=== PATIENT | female | born 1950 ===

== ENCOUNTER 2017-09-24 00:23 | Inpatient (IN) | payer MEDICARE, MEDICAID ==
[2017-09-24] MEDS ORDERED: Aspirin 325 mg EC Tablets PO STA (00:41)
--- NOTE | 2017-09-24 00:46 | C.PDOC ---
History Of Present Illness 66 year old female with a Hx of diabetes and HTN presents to the ER with a complaint of palpations and feeling SOB intermittently for the past few days that has worsened today. Patient reports feeling lightheaded as if she is going to lose her balance and fall. Patient notes she is a smoker and smokes through 1 pack of cigarettes every 3 days. Denies nausea, vomiting, or other complaints. Chief Complaint (Nursing): Shortness Of Breath History Per: Patient History/Exam Limitations: no limitations Onset/Duration Of Symptoms: Days Current Symptoms Are (Timing): Still Present Current Respiratory Medications: None Associated Symptoms: Heart Racing. denies: Fever, Chills Recent travel outside of the [place]: No Past Medical History Reviewed: Historical Data, Nursing Documentation, Vital Signs Vital Signs: Last Vital Signs Temp 97.5 F L 09/24/17 00:29 Pulse 73 09/24/17 02:15 Resp 20 09/24/17 02:15 BP 101/43 L 09/24/17 02:15 Pulse Ox 98 09/24/17 03:07 - Medical History PMH: Arthritis, Asthma, Diabetes, HTN, Rheumatoid Arthritis - [facility] Procedures COLONOSCOPY (02/28/14) ESOPHAGOGASTRODUODENOSCOPY [EGD] W/CLOSED BIOPSY (01/31/14) Family History: States: Unknown Family Hx - Social History Hx Alcohol Use: Yes Hx Substance Use: No - Immunization History Hx Tetanus Toxoid Vaccination: No Hx Influenza Vaccination: No Hx Pneumococcal Vaccination: No Review Of Systems Constitutional: Negative for: Fever, Chills Eyes: Negative for: Vision Change Cardiovascular: Positive for: Palpitations Respiratory: Positive for: Shortness of Breath Gastrointestinal: Negative for: Nausea, Vomiting Neurological: Negative for: Weakness, Numbness Physical Exam - Physical Exam Appears: Non-toxic, No Acute Distress, Other (Awake, Alert) Skin: Normal Color, Warm, Dry Head: Atraumatic, Normacephalic Eye(s): bilateral: Normal Inspection, EOMI Oral Mucosa: Moist Neck: Normal, Supple Chest: Symmetrical, No Tenderness Cardiovascular: Rhythm Irregular (Slow), No JVD, Other (Slow rhythm on the monitor, BP 108/43) Respiratory: Normal Breath Sounds, No Rales, No Rhonchi, No Wheezing, Other ( Pulse ox 100%) Gastrointestinal/Abdominal: Soft, No Tenderness Neurological/Psych: Oriented x3, Normal Speech, Other (No focal deficits) ED Course And Treatment - Laboratory Results Result Diagrams: 09/24/17 01:04 09/24/17 01:04 ECG Rhythm: Atrial Fibrillation ECG Interpretation: Abnormal Interpretation Of ECG: Slow ventricular response, no discernible P waves, otherwise intervals within normal limits. No acute ST/T wave changes, no ischemia, poor R wave progression in intraseptal leads. Rate From EC O2 Sat by Pulse Oximetry: 98 (Room air) Pulse Ox Interpretation: Normal Interpretation Of Abnormal: repeat ekg after CaCl2,bicarb,insulin and D50 shows NSR at 78BPM.NSSTTW changes - Radiology CXR: Interpreted by Me, Viewed By Me CXR Interpretation: Yes: No Acute Disease, Other (Cardiac silhoutte within normal limits, lung hunt appear normal) - CT Scan/US CTA Other Rad Studies (CT/US): Read By Radiologist, Radiology Report Reviewed CT/US Interpretation: EXAM: CT Angiography Chest With Intravenous Contrast. CLINICAL HISTORY: 66 years old, female; Pain; Chest pain; Additional info: SOB. TECHNIQUE: Axial computed tomographic angiography images of the chest with intravenous contrast using. pulmonary embolism protocol. All CT scans at this facility use one or more dose reduction. techniques, viz.: automated exposure control; ma/kV adjustment per patient size (including targeted. exams where dose is matched to indication; i.e. head); or iterative reconstruction technique. MIP reconstructed images were created and reviewed. Coronal and sagittal reformatted images were created and reviewed. CONTRAST: 100 mL of [id number] administered intravenously. COMPARISON: No relevant prior studies available. FINDINGS: Pulmonary arteries: Unremarkable. No pulmonary embolism. Aorta: No acute findings. No thoracic aortic aneurysm. Lungs: 5 mm nodule in right lung. Series 3 image #48. For low-risk patients, no follow-up is. necessary. For high-risk patients (smoking history or other known risk factors) an optional chest CT. at 12 months could be performed. Dependent atelectasis at lung bases. Pleural space: Unremarkable. No significant effusion. No pneumothorax. Heart: Unremarkable. No cardiomegaly. No significant pericardial effusion. Bones/joints: Diffuse spinal degenerative changes. No acute fracture. No dislocation. Soft tissues: Unremarkable. Lymph nodes: Unremarkable. No enlarged lymph nodes. IMPRESSION: 1. No acute pulmonary embolism. 2. 5 mm nodule right lung. See above. 3. Remainder of findings as above. Progress Note: atrial fib was likely the result of hyperkalemia.After correction of the potassium levels,rhythm reverted to NSR Medical Decision Making Medical Decision Making: Plan: * EKG * Blood work * CXR * Aspirin Patient with heraclio arrhythmia on unknown HTN medication, blood pressure medications may be possible cause of heraclio arrhythmia resulting in generalized weakness and presyncope. Will admits for observation, patient may potentially need pacemaker. Patient had a holter monitor done in 08/10/17 which showed sinus rhythm and sinus tach with a low of 65 bpm to a max of 112 bpm and isolated APCs but nothing remarkable. No a-fib seen at this time. Repeat EKG showed A-fib with slow ventricular response, occasional PACs, no acute ischemic changes. Patient given sodium bicarb, calcium chloride, insulin, and d50 pushed for hyperkalemia; shortly after p waves reappeared on the monitor and patient converted back to NSR. It is likely that the correction of the hyperkalemia resulted in the ablation of the arrhythmia. Disposition - Disposition Referrals: Blu Batista MD [Primary Care Provider] - Disposition: HOSPITALIZED Disposition Time: 02:47 Condition: GUARDED Forms: [employer] (Tunisian) - Clinical Impression Clinical Impression: Atrial fibrillation, Hyperkalemia, Pre-syncope - Scribe Statement The provider has reviewed the documentation as recorded by the Scribe Deven Us All medical record entries made by the Scribe were at my direction and personally dictated by me. I have reviewed the chart and agree that the record accurately reflects my personal performance of the history, physical exam, medical decision making, and the department course for this patient. I have also personally directed, reviewed, and agree with the discharge instructions and disposition. Decision To Admit - Pt Status Changed To: Hospital Disposition Of: Inpatient - Admit Certification Admit to Inpatient:: After my assessment, the patient will require hospitalization for at least two midnights. This is because of the severity of symptoms shown, intensity of services needed, and/or the medical risk in this patient being treated as an outpatient. - InPatient: Physician Admission Certification: I certify that this patient requires 2 or more midnights of care for the following reason:: new onset atrial fib, presyncope,hyperkalemia - . Bed Request Type: Telemetry Admitting Physician: Elías Hart Patient Diagnosis: Atrial fibrillation, Hyperkalemia, Pre-syncope
[2017-09-24] MEDS ORDERED: Aspirin 325 mg EC Tablets PO ONE (00:59)
[2017-09-24 01:08] LABS: CHLORIDE 102 mmol/L (98-107)
[2017-09-24 01:09] LABS: POTASSIUM 5.8 mmol/L (3.6-5.2); SODIUM 133 mmol/L (132-148)
[2017-09-24 01:11] LABS: AST/SGOT 27 U/L (14-36); BILIRUBIN,TOTAL 0.5 mg/dL (0.2-1.3); CARBON DIOXIDE 22 mmol/L (22-30); GFR AFRICAN-AMERICAN > 60; TOTAL PROTEIN 7.6 g/dL (6.3-8.3)
[2017-09-24 01:12] LABS: ALKALINE PHOSPHATASE 64 U/L (38-126); ALT/SGPT 35 U/L (9-52); BLOOD UREA NITROGEN 18 mg/dL (7-17); CALCIUM 10.6 mg/dl (8.6-10.4); GLUCOSE,RANDOM 126 mg/dL (65-105)
[2017-09-24 01:13] LABS: BASO # 0.1 K/uL (0.0-0.2); EOS # 0.3 K/uL (0.0-0.7); EOS % 2.8 % (0.0-4.0); HEMATOCRIT 35.4 % (34.0-47.0); LYMPH # 4.4 K/uL (1.0-4.3); LYMPH % 35.9 % (20.0-40.0); MEAN CORPUSCULAR HEMOGLOBIN 29.8 pg (27.0-31.0); MEAN CORPUSCULAR HGB CONC 32.4 g/dL (33.0-37.0); MEAN PLATELET VOLUME 8.1 fL (7.2-11.7); MONO # 0.7 K/uL (0.0-0.8); MONO % 5.3 % (0.0-10.0); RED CELL DISTRIBUTION WIDTH 15.9 % (11.5-14.5); WHITE BLOOD COUNT 12.3 K/uL (4.8-10.8)
[2017-09-24] MEDS ORDERED: (Novolin R) Insulin Human Regular 100 units/ml vial IV ONE (01:52)
[2017-09-24] MEDS ORDERED: Calcium Chloride 1000 mg/10 ml Syringe IV ONE (01:52)
[2017-09-24] MEDS ORDERED: Dextrose 50% SYRINGE Inj (50 ml) IV STA (01:53)
[2017-09-24] MEDS ORDERED: Sodium Bicarbonate (8.4%) 50 Meq Syringe IVP ONE (01:53)
[2017-09-24] MEDS ORDERED: (Novolin R) Insulin Human Regular 100 units/ml vial ONE (02:02)
[2017-09-24] MEDS ORDERED: Dextrose 50% SYRINGE Inj (50 ml) ONE (02:03)
[2017-09-24] MEDS ORDERED: Sodium Bicarbonate (8.4%) 50 Meq Syringe ONE ×2 (02:03→02:12)
--- NOTE | 2017-09-24 02:04 | CP.PCM.HP ---
<Abundio Ariza Kimberli - Last Filed: 09/24/17 04:04> History of Present Illness - History of Present Illness History of Present Illness: "I was going to faint" This is a 66 year old female with a past medical history of HTN, Diabetes, Rheumatoid arthritis, Osteoporosis, who came to the ER via ambulance because of a 48 hour history of feeling lightheaded, short of breath and as if she was going to pass out. This morning these symptoms became worse. She says she felt as if she would fall if she were to get out of bed. She called her PMD , Dr Batista, who was not working today, thus she called 911. She had similar symptoms 2 weeks ago but of a milder degree. She reports palpitations. She says at baseline she's able to walk 4 blocks, at which point she becomes tired and short of breath. She sleeps with 1 pillow at night. She denies fever, chills, nausea, vomiting, chest pain, abdominal pain, diarrhea, dysuria, or other complaints. Upon chart review, patient had a holter monitor done in which showed sinus rhythm and sinus tach with a low of 65 bpm to a max of 112 bpm and isolated APCs but nothing remarkable. PMD: Dr Blu Batista PMHx: HTN, Diabetes, Rheumatoid arthritis, Osteoporosis PSHx: surgery on feet b/l 2004 (cannot recall specifics), surgery on knees b/l 2004 (cannot recall specifics), "bladder surgery" for urinary incontinence 2004 Allergies: NKA Home medications: Metformin 1000mg PO BID, she takes other medications but does not remember the name (will need to contact PMD to verify) FamHx: Mother from DM2 complications; Father from heart problems SocialHx: smokes 1 pack per week for past 40 years; denies alcohol or illicit drug use; lives alone in home, has a daughter who checks-in on her Present on Admission - Present on Admission Any Indicators Present on Admission: No Review of Systems - Constitutional Constitutional: absent: Chills, Fever, Frequent Falls, Headache, Lethargy, Night Sweats, Weight Loss - EENT Eyes: absent: Change in Vision - Cardiovascular Cardiovascular: Dyspnea, Dyspnea on Exertion, Lightheadedness, Palpitations. absent: Chest Pain, Chest Pain at Rest, Chest Pain with Activity, Diaphoresis, Edema, Leg Edema Additional comments: Presyncope - Respiratory Respiratory: Dyspnea on Exertion. absent: Cough, Wheezing - Gastrointestinal Gastrointestinal: absent: Abdominal Pain, Bloating, Constipation, Diarrhea, Vomiting - Genitourinary Genitourinary: absent: Dysuria - Musculoskeletal Musculoskeletal: Back Pain - Neurological Neurological: Disequilibrium. absent: Focal Weakness Past Patient History - Infectious Disease Hx of Infectious Diseases: None - Past Social History Smoking Status: Current Some Days Smoker - CARDIAC Hx Hypertension: Yes - PULMONARY Hx Asthma: Yes - ENDOCRINE/METABOLIC Hx Diabetes Mellitus Type 2: Yes - MUSCULOSKELETAL/RHEUMATOLOGICAL Hx Arthritis: Yes Hx Rheumatoid Arthritis: Yes - PSYCHIATRIC Hx Substance Use: No - SURGICAL HISTORY Hx Musculoskeletal Surgery: Yes Other/Comment: "L knee and L foot" - ANESTHESIA Hx Anesthesia: Yes Hx Anesthesia Reactions: No Hx Malignant Hyperthermia: No Meds Allergies/Adverse Reactions: Allergies Allergy/AdvReac Type Severity Reaction Status Date / Time No Known Allergies Allergy Unverified 09/24/17 00:29 Physical Exam - Constitutional Appears: Well, No Acute Distress - Head Exam Head Exam: ATRAUMATIC, NORMAL INSPECTION - Eye Exam Eye Exam: EOMI Pupil Exam: PERRL - ENT Exam ENT Exam: Mucous Membranes Moist - Neck Exam Neck exam: Positive for: Normal Inspection. Negative for: Tenderness - Respiratory Exam Respiratory Exam: Clear to Auscultation Bilateral, NORMAL BREATHING PATTERN. absent: Rales, Rhonchi, Wheezes - Cardiovascular Exam Cardiovascular Exam: REGULAR RHYTHM, +S1, +S2. absent: Bradycardia, Tachycardia , JVD, Systolic Murmur - GI/Abdominal Exam GI & Abdominal Exam: Normal Bowel Sounds, Soft. absent: Distended, Guarding, Tenderness - Extremities Exam Extremities exam: Positive for: normal capillary refill, normal inspection, pedal pulses present. Negative for: calf tenderness, pedal edema, tenderness - Back Exam Back exam: CVA tenderness (L), CVA tenderness (R), NORMAL INSPECTION, vertebral tenderness. absent: rash noted - Neurological Exam Neurological exam: Alert, CN II-XII Intact, Oriented x3 - Psychiatric Exam Psychiatric exam: Normal Affect, Normal Mood - Skin Skin Exam: Intact, Normal Color, Warm Results - Vital Signs Recent Vital Signs: Last Vital Signs Temp 97.5 F L 09/24/17 00:29 Pulse 46 L 09/24/17 00:29 Resp 14 09/24/17 00:30 BP 108/43 L 09/24/17 00:29 Pulse Ox 98 09/24/17 01:58 - Labs Result Diagrams: 09/24/17 01:04 09/24/17 01:04 Labs: Laboratory Results - last 24 hr 09/24/17 09/24/17 09/24/17 01:04 01:04 01:04 WBC 12.3 H RBC 3.85 Hgb 11.5 Hct 35.4 MCV 92.0 MCH 29.8 MCHC 32.4 L RDW 15.9 H Plt Count 298 MPV 8.1 Neut % (Auto) 55.0 Lymph % (Auto) 35.9 Bland % (Auto) 5.3 Eos % (Auto) 2.8 Baso % (Auto) 1.0 Neut # 6.8 Lymph # 4.4 H Bland # 0.7 Eos # 0.3 Baso # 0.1 PT 10.7 INR 1.0 APTT 33 D-Dimer, Quantitative 315 H Sodium 133 Potassium 5.8 H Chloride 102 Carbon Dioxide 22 Anion Gap 15 BUN 18 H Creatinine 0.8 Est GFR ( Amer) > 60 Est GFR (Non-Af Amer) > 60 Random Glucose 126 H Calcium 10.6 H Total Bilirubin 0.5 AST 27 ALT 35 Alkaline Phosphatase 64 Troponin I 0.0210 NT-Pro-B Natriuret Pep 1950 H Total Protein 7.6 Albumin 3.8 Globulin 3.8 Albumin/Globulin Ratio 1.0 Assessment & Plan (1) Pre-syncope Assessment and Plan: Likely secondary to hyperkalemia resulting in arrythmia Initial EKG showed A-Fib with slow ventricular response, occasional PACs, no acute ischemic changes. Patient administered meds to correct hyperkalemia (see below); shortly after p waves re-appeared on the monitor and patient converted back to NSR. Potassium on admission: 5.8 In ED: Calcium Chloride 1000mg IV ONCE In ED: Sodium Bicarbonate 50 meq IVP ONCE In ED: Dextrose 50% 50ml IV ONCE In ED: Insulin Regular 10 units IV ONCE F/U FOBT Status: Acute (2) Atrial fibrillation Assessment and Plan: Initial EKG showed A-Fib with slow ventricular response, occasional PACs, no acute ischemic changes. Patient administered meds to correct hyperkalemia; shortly after p waves re-appeared on the monitor and patient converted back to NSR. Cardiology consult, Dr Machado On telemetry Trop x1 (-), F/U Trop x2 ECHO, F/U ECHO 04/2017: LVSF normal. EF 65%. Abnormal relaxation pattern. Mild pulmonary hypertension. Status: Acute (3) Hyperkalemia Assessment and Plan: Potassium on admission: 5.8 In ED: Calcium Chloride 1000mg IV ONCE In ED: Sodium Bicarbonate 50 meq IVP ONCE In ED: Dextrose 50% 50ml IV ONCE In ED: Insulin Regular 10 units IV ONCE F/U AM CMP Status: Acute (4) Elevated d-dimer Assessment and Plan: D-Dimer 315 CT Chest Angio 09/24: No acute pulmonary embolism. 5mm nodule right lung ( should have repeat chest CT in 12 months). Status: Acute (5) Prophylactic measure Assessment and Plan: GI: Protonix 40mg PO QD DVT: SCDs, Heparin 5000u SC Q8H Diet: Heart Healthy - Moderate Carbohydrate Consistency Status: Acute <Elías Hart - Last Filed: 09/24/17 06:34> Results - Vital Signs Recent Vital Signs: Last Vital Signs Temp 97.8 F 09/24/17 04:20 Pulse 70 09/24/17 04:54 Resp 20 09/24/17 04:20 BP 153/81 H 09/24/17 04:20 Pulse Ox 98 09/24/17 06:18 - Labs Result Diagrams: 09/24/17 01:04 09/24/17 01:04 Labs: Laboratory Results - last 24 hr 09/24/17 09/24/17 09/24/17 01:04 01:04 01:04 WBC 12.3 H RBC 3.85 Hgb 11.5 Hct 35.4 MCV 92.0 MCH 29.8 MCHC 32.4 L RDW 15.9 H Plt Count 298 MPV 8.1 Neut % (Auto) 55.0 Lymph % (Auto) 35.9 Bland % (Auto) 5.3 Eos % (Auto) 2.8 Baso % (Auto) 1.0 Neut # 6.8 Lymph # 4.4 H Bland # 0.7 Eos # 0.3 Baso # 0.1 PT 10.7 INR 1.0 APTT 33 D-Dimer, Quantitative 315 H Sodium 133 Potassium 5.8 H Chloride 102 Carbon Dioxide 22 Anion Gap 15 BUN 18 H Creatinine 0.8 Est GFR ( Amer) > 60 Est GFR (Non-Af Amer) > 60 Random Glucose 126 H Calcium 10.6 H Total Bilirubin 0.5 AST 27 ALT 35 Alkaline Phosphatase 64 Troponin I 0.0210 NT-Pro-B Natriuret Pep 1950 H Total Protein 7.6 Albumin 3.8 Globulin 3.8 Albumin/Globulin Ratio 1.0 Assessment & Plan - Date & Time Date: 09/24/17 (I have seen and examined the patient. I agree with the findings and plan of care as documented by Dr. Ariza. Patient with new onset atrial fibrillation seen in ED. Now in NSR. Check 2D echo and ROMIx3 with EKG. Consult to Cardio. Presyncope may be related to paroxysmal atrial fib. Check CT head. Hyperkalemia treated in ED. Will monitor and treat accordingly. CT angio negative for pulm embolism. Monitor for acute changes.) Time: 06:31 Attending/Attestation - Attestation I have personally seen and examined this patient.: Yes I have fully participated in the care of the patient.: Yes I have reviewed all pertinent clinical information: Yes
[2017-09-24] MEDS ORDERED: Iodixanol 320 mg/ml 150 ml Bottle IV ONE (02:06)
--- NOTE | 2017-09-24 03:38 | CT ---
EXAM: CT Angiography Chest With Intravenous Contrast CLINICAL HISTORY: 66 years old, female; Pain; Chest pain; Additional info: SOB TECHNIQUE: Axial computed tomographic angiography images of the chest with intravenous contrast using pulmonary embolism protocol. All CT scans at this facility use one or more dose reduction techniques, viz.: automated exposure control; ma/kV adjustment per patient size (including targeted exams where dose is matched to indication; i.e. head); or iterative reconstruction technique. MIP reconstructed images were created and reviewed. Coronal and sagittal reformatted images were created and reviewed. CONTRAST: 100 mL of [id number] administered intravenously. COMPARISON: No relevant prior studies available. FINDINGS: Pulmonary arteries: Unremarkable. No pulmonary embolism. Aorta: No acute findings. No thoracic aortic aneurysm. Lungs: 5 mm nodule in right lung. Series 3 image #48. For low-risk patients, no follow-up is necessary. For high-risk patients (smoking history or other known risk factors) an optional chest CT at 12 months could be performed. Dependent atelectasis at lung bases. Pleural space: Unremarkable. No significant effusion. No pneumothorax. Heart: Unremarkable. No cardiomegaly. No significant pericardial effusion. Bones/joints: Diffuse spinal degenerative changes. No acute fracture. No dislocation. Soft tissues: Unremarkable. Lymph nodes: Unremarkable. No enlarged lymph nodes. IMPRESSION: 1. No acute pulmonary embolism. 2. 5 mm nodule right lung. See above. 3. Remainder of findings as above.
[2017-09-24 04:21] VITALS: RESP 20
[2017-09-24 07:57] LABS: CHLORIDE 100 mmol/L (98-107)
[2017-09-24 07:58] LABS: SODIUM 135 mmol/L (132-148)
[2017-09-24 08:00] LABS: ALB/GLOB RATIO 1.3 (1.0-2.1); ALKALINE PHOSPHATASE 72 U/L (38-126); AST/SGOT 14 U/L (14-36); BILIRUBIN,TOTAL 0.7 mg/dL (0.2-1.3); BLOOD UREA NITROGEN 16 mg/dL (7-17); CARBON DIOXIDE 24 mmol/L (22-30); GFR AFRICAN-AMERICAN > 60; TOTAL PROTEIN 6.6 g/dL (6.3-8.3)
[2017-09-24 08:01] LABS: ALT/SGPT 27 U/L (9-52); CALCIUM 10.2 mg/dl (8.6-10.4); GLUCOSE,RANDOM 66 mg/dL (65-105)
[2017-09-24 08:13] LABS: BASO # 0.1 K/uL (0.0-0.2); BASO % 0.7 % (0.0-2.0); EOS # 0.4 K/uL (0.0-0.7); EOS % 4.4 % (0.0-4.0); LYMPH # 3.5 K/uL (1.0-4.3); LYMPH % 43.5 % (20.0-40.0); MEAN CELL VOLUME 91.7 fL (81.0-99.0); MEAN CORPUSCULAR HEMOGLOBIN 30.4 pg (27.0-31.0); MEAN CORPUSCULAR HGB CONC 33.1 g/dL (33.0-37.0); MEAN PLATELET VOLUME 8.8 fL (7.2-11.7); MONO # 0.4 K/uL (0.0-0.8); MONO % 5.1 % (0.0-10.0); NRBC % 0.1 % (0.0-2.0); RED CELL DISTRIBUTION WIDTH 15.8 % (11.5-14.5); WHITE BLOOD COUNT 8.1 K/uL (4.8-10.8)
--- NOTE | 2017-09-24 08:33 | RAD ---
PROCEDURE: CHEST RADIOGRAPH, 1 VIEW HISTORY: Chest pain COMPARISON: None available. FINDINGS: LUNGS: The lungs are clear. PLEURA: No pneumothorax or pleural fluid seen. CARDIOVASCULAR: Normal. OSSEOUS STRUCTURES: No significant abnormalities. VISUALIZED UPPER ABDOMEN: Normal. OTHER FINDINGS: None. IMPRESSION: No active pulmonary disease.
[2017-09-24] MEDS ORDERED: Pantoprazole 40 mg EC Tab PO SCH (10:00)
--- NOTE | 2017-09-24 10:20 | CT ---
PROCEDURE: CT HEAD WITHOUT CONTRAST. HISTORY: r/o ischemic changes COMPARISON: None available. TECHNIQUE: Axial computed tomography images were obtained through the head/brain without intravenous contrast. Radiation dose: Total exam DLP = 891.19 mGy-cm. This CT exam was performed using one or more of the following dose reduction techniques: Automated exposure control, adjustment of the mA and/or kV according to patient size, and/or use of iterative reconstruction technique. FINDINGS: HEMORRHAGE: No intracranial hemorrhage. BRAIN: Winkler-white matter differentiation is preserved. There is no mass, mass effect or abnormal extra-axial fluid collection. VENTRICLES: The ventricles are normal in size, shape and configuration. CALVARIUM: The skull base and calvarium are normal. PARANASAL SINUSES: There is a fluid level in the sphenoid sinus. The remaining included paranasal sinuses are clear. MASTOID AIR CELLS: Predominantly clear. OTHER FINDINGS: None. IMPRESSION: No acute intracranial abnormality. If there is a persistent focal neurologic deficit and an ongoing clinical concern for acute infarction, an MRI of the brain without intravenous contrast would be a more sensitive modality for evaluation of hyperacute/acute ischemic infarction. Fluid level in the sphenoid sinus may represent acute sinusitis in the appropriate clinical setting.
--- NOTE | 2017-09-24 14:59 | CARD ---
APPROVED REPORT EXAM: Two-dimensional and M-mode echocardiogram with Doppler and color Doppler. M-Mode DIMENSIONS RVDd1.69 (2.1-3.2cm)Left Atrium (MM)3.47 (2.5-4.0cm) IVSd0.91 (0.7-1.1cm)Aortic Root2.88 (2.2-3.7cm) LVDd4.62 (4.0-5.6cm)Aortic Cusp Exc.1.67 (1.5-2.0cm) PWd0.98 (0.7-1.1cm)FS (%) 39 % LVDs2.83 (2.0-3.8cm)LVEF (%)69 (>50%) Mitral Valve MV E Isszenhr37.3cm/sMV A Gjyfdrfr32.6cm/sE/A ratio0.6 TDI E/Lateral E'0.0E/Medial E'0.0 Tricuspid Valve TR Peak Yoivpudq778md/sTR Peak Gr.[id number] LEFT VENTRICLE The left ventricle is normal size. There is normal left ventricular wall thickness. The left ventricular function is normal. The left ventricular ejection fraction is within the normal range. There is normal LV segmental wall motion. Transmitral Doppler flow pattern is Grade I-abnormal relaxation pattern. No left ventricle thrombus noted on this study. No left ventricle thrombus noted on this study. There is no ventricular septal defect visualized. There is no left ventricular aneurysm. RIGHT VENTRICLE The right ventricle is normal size. There is normal right ventricular wall thickness. The right ventricular systolic function is normal. ATRIA The left atrium size is normal. The right atrium size is normal. The interatrial septum is intact with no evidence for an atrial septal defect. AORTIC VALVE The aortic valve is normal in structure. No aortic regurgitation is present. There is no aortic valvular stenosis. There is no aortic valvular vegetation. MITRAL VALVE The mitral valve is normal in structure. There is no mitral valve stenosis. There is no mitral valve regurgitation noted. TRICUSPID VALVE The tricuspid valve is normal in structure. There is no tricuspid valve regurgitation noted. There is no tricuspid valve stenosis. PULMONIC VALVE The pulmonary valve is normal in structure. There is no pulmonic valvular regurgitation. GREAT VESSELS The aortic root is normal in size. The ascending aorta is normal in size. The pulmonary artery is normal. The IVC is normal in size and collapses >50% with inspiration. PERICARDIAL EFFUSION There is no pericardial effusion. <Conclusion> Transmitral Doppler flow pattern is Grade I-abnormal relaxation pattern. OTHERWISE NORMAL STUDY.
[2017-09-24] MEDS ORDERED: Cilostazol 100 mg Tab UD PO SCH (18:00)
[2017-09-24] MEDS ORDERED: Metoprolol Succinate 25 mg XL Tab PO SCH (18:00)
--- NOTE | 2017-09-24 21:50 | CP.PCM.PN ---
Subjective - Date & Time of Evaluation Date of Evaluation: 09/24/17 Time of Evaluation: 12:00 - Subjective Subjective: No complain,no sob,no chest pain,s/p palpitation Objective - Vital Signs/Intake and Output Vital Signs (last 24 hours): Temp Pulse Resp BP Pulse Ox 97.9 F 85 20 127/75 96 09/24/17 15:25 09/24/17 17:21 09/24/17 15:25 09/24/17 17:22 09/24/17 15:25 - Medications Medications: Current Medications Amitriptyline HCl (Elavil) 100 mg PO HS [facility] Apixaban (Eliquis) 5 mg PO BID [facility] Last Admin: 09/24/17 17:22 Dose: 5 mg Aspirin (Aspirin Chewable) 81 mg PO DAILY [facility] Famotidine (Pepcid) 20 mg PO BID [facility] Last Admin: 09/24/17 17:22 Dose: 20 mg Furosemide (Lasix) 40 mg PO DAILY [facility] Last Admin: 09/24/17 17:22 Dose: 40 mg Losartan Potassium (Cozaar) 25 mg PO DAILY [facility] Memantine (Namenda) 10 mg PO BID [facility] Metoprolol Succinate (Toprol Xl) 25 mg PO DAILY [facility] Oxybutynin Chloride (Ditropan Xl) 10 mg PO DAILY [facility] Rosuvastatin Calcium (Crestor) 5 mg PO HS [facility] - Labs Labs: 09/24/17 07:33 09/24/17 07:15 PT 10.7 SECONDS (9.7-12.2) 09/24/17 01:04 INR 1.0 09/24/17 01:04 APTT 33 SECONDS (21-34) 09/24/17 01:04 - Head Exam Head Exam: NORMAL INSPECTION - Eye Exam Eye Exam: Normal appearance - ENT Exam ENT Exam: Mucous Membranes Moist - Neck Exam Neck Exam: Normal Inspection - Respiratory Exam Respiratory Exam: Clear to Ausculation Bilateral, NORMAL BREATHING PATTERN - Cardiovascular Exam Cardiovascular Exam: REGULAR RHYTHM - GI/Abdominal Exam GI & Abdominal Exam: Normal Bowel Sounds - Extremities Exam Extremities Exam: Full ROM - Neurological Exam Neurological Exam: Oriented x3 - Psychiatric Exam Psychiatric exam: Normal Mood - Skin Skin Exam: Dry Assessment and Plan - Assessment and Plan (Free Text) Plan: P Attending/Attestation - Attestation I have personally seen and examined this patient.: Yes I have fully participated in the care of the patient.: Yes I have reviewed all pertinent clinical information, including history, physical exam and plan: Yes Notes (Text): Patient denied bleeding history.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
[2017-09-25 07:00] LABS: BASO # 0.1 K/uL (0.0-0.2); BASO % 0.8 % (0.0-2.0); EOS # 0.3 K/uL (0.0-0.7); HEMATOCRIT 38.2 % (34.0-47.0); LYMPH # 2.8 K/uL (1.0-4.3); LYMPH % 19.7 % (20.0-40.0); MEAN CELL VOLUME 90.6 fL (81.0-99.0); MEAN CORPUSCULAR HEMOGLOBIN 30.1 pg (27.0-31.0); MEAN CORPUSCULAR HGB CONC 33.2 g/dL (33.0-37.0); MONO # 0.6 K/uL (0.0-0.8); MONO % 4.2 % (0.0-10.0); RED CELL DISTRIBUTION WIDTH 15.3 % (11.5-14.5); WHITE BLOOD COUNT 14.1 K/uL (4.8-10.8)
[2017-09-25 07:14] LABS: CHLORIDE 98 mmol/L (98-107)
[2017-09-25 07:15] LABS: POTASSIUM 4.1 mmol/L (3.6-5.2); SODIUM 131 mmol/L (132-148)
[2017-09-25 07:17] LABS: CARBON DIOXIDE 24 mmol/L (22-30); CHOLESTEROL 224 mg/dL (0-199); GFR AFRICAN-AMERICAN > 60
[2017-09-25 07:18] LABS: ALB/GLOB RATIO 1.3 (1.0-2.1); ALKALINE PHOSPHATASE 85 U/L (38-126); ALT/SGPT 27 U/L (9-52); AST/SGOT 17 U/L (14-36); BILIRUBIN,TOTAL 0.7 mg/dL (0.2-1.3); BLOOD UREA NITROGEN 14 mg/dL (7-17); CALCIUM 9.1 mg/dl (8.6-10.4); GLUCOSE,RANDOM 213 mg/dL (65-105); PHOSPHOROUS 3.5 mg/dL (2.5-4.5)
[2017-09-25 07:19] LABS: MAGNESIUM 1.4 mg/dL (1.6-2.3)
[2017-09-25 07:48] LABS: THYROID STIMULATING HORMONE 2.06 mIU/L (0.46-4.68)
[2017-09-25] MEDS: Magnesium Sulfate 1 gm in D5W 1 GM/100 ML BAG IVPB SCH ×2 (09:30→10:50)
[2017-09-25] MEDS ORDERED: Metoprolol Succinate 25 mg XL Tab PO SCH (10:00)
[2017-09-25] MEDS ORDERED: Home Med 1 UNIT (Omeprazole [Omeprazole] 40 MG) PO SCH (10:00)
[2017-09-25] MEDS: Oxybutynin XL 10 mg Tab PO SCH (10:19)
[2017-09-25] MEDS ORDERED: Magnesium Sulfate 1 gm in D5W 1 GM/100 ML BAG IVPB ONE (13:06)
--- NOTE | 2017-09-25 13:15 | CP.PCM.PN ---
<Graeme Barron - Last Filed: 09/25/17 13:16> Subjective - Date & Time of Evaluation Date of Evaluation: 09/25/17 Time of Evaluation: 13:15 - Subjective Subjective: Progress note. Attending: Dr. Vera Pt seen and examined at bedside. No acute distress. No events overnight. No fevers, chills, vomiting, diarrhea. Reports some palpitations Objective - Vital Signs/Intake and Output Vital Signs (last 24 hours): Temp Pulse Resp BP Pulse Ox 98.2 F 114 H 20 101/64 95 09/24/17 23:38 09/25/17 12:09 09/24/17 23:38 09/25/17 10:20 09/25/17 12:09 Intake and Output: 09/25/17 09/25/17 06:59 18:59 Intake Total 640 Balance 640 - Medications Medications: Current Medications Amitriptyline HCl (Elavil) 100 mg PO HS [facility] Apixaban (Eliquis) 5 mg PO BID [facility] Last Admin: 09/25/17 10:19 Dose: 5 mg Aspirin (Aspirin Chewable) 81 mg PO DAILY [facility] Last Admin: 09/25/17 10:20 Dose: 81 mg Famotidine (Pepcid) 20 mg PO BID [facility] Last Admin: 09/25/17 10:20 Dose: 20 mg Furosemide (Lasix) 40 mg PO DAILY [facility] Last Admin: 09/25/17 10:20 Dose: 40 mg Magnesium Sulfate/Dextrose (Magnesium Sulfate 1 Gm/100 Ml D5w) 1 gm in 100 mls @ 200 mls/hr IVPB ONCE ONE Stop: 09/25/17 13:35 Losartan Potassium (Cozaar) 25 mg PO DAILY [facility] Last Admin: 09/25/17 10:20 Dose: 25 mg Memantine (Namenda) 10 mg PO BID [facility] Metoprolol Tartrate (Lopressor) 25 mg PO Q8 [facility] Oxybutynin Chloride (Ditropan Xl) 10 mg PO DAILY [facility] Last Admin: 09/25/17 10:19 Dose: 10 mg Rosuvastatin Calcium (Crestor) 10 mg PO HS [facility] - Labs Labs: 09/25/17 06:52 09/25/17 06:52 PT 10.7 SECONDS (9.7-12.2) 09/24/17 01:04 INR 1.0 09/24/17 01:04 APTT 33 SECONDS (21-34) 09/24/17 01:04 - Constitutional Appears: Non-toxic, No Acute Distress - Head Exam Head Exam: ATRAUMATIC, NORMAL INSPECTION, NORMOCEPHALIC - Eye Exam Eye Exam: EOMI - ENT Exam ENT Exam: Mucous Membranes Moist - Neck Exam Neck Exam: Full ROM, Normal Inspection - Respiratory Exam Respiratory Exam: NORMAL BREATHING PATTERN. absent: Respiratory Distress - Cardiovascular Exam Cardiovascular Exam: Tachycardia, +S1, +S2 - GI/Abdominal Exam GI & Abdominal Exam: Soft, Normal Bowel Sounds. absent: Tenderness - Extremities Exam Extremities Exam: Full ROM, Normal Inspection - Back Exam Back Exam: NORMAL INSPECTION - Neurological Exam Neurological Exam: Alert, Awake, Oriented x3 - Psychiatric Exam Psychiatric exam: Normal Affect, Normal Mood - Skin Skin Exam: Dry, Intact, Normal Color, Warm Assessment and Plan - Assessment and Plan (Free Text) Assessment: Pre syncope Likely secondary to hyperkalemia resulting in arrythmia Initial EKG showed A-Fib with slow ventricular response, occasional PACs, no acute ischemic changes. Patient administered meds to correct hyperkalemia (see below); shortly after p waves re-appeared on the monitor and patient converted back to NSR. echo shows grade I diastolic pattern, otherwise normal study. Atrial fibrillation Initial EKG showed A-Fib with slow ventricular response, occasional PACs, no acute ischemic changes. Patient administered meds to correct hyperkalemia; shortly after p waves re-appeared on the monitor and patient converted back to NSR. Cardiology consult, Dr Machado On telemetry trops negative echo findings as above ECHO 04/2017: LVSF normal. EF 65%. Abnormal relaxation pattern. Mild pulmonary hypertension. lopressor TID eliquis 5 mg PO BID Hyperkalemia resolved Elevated d dimer CT angio negative for PE CT scan did show 5 mm lung nodule f/u outpatient GI/DVT ppx heparin 5000 q 8 protonix daily discussed with Dr. Vera <Sherita Vera - Last Filed: 09/25/17 14:48> Objective - Vital Signs/Intake and Output Vital Signs (last 24 hours): Temp Pulse Resp BP Pulse Ox 98.2 F 114 H 20 103/69 95 09/24/17 23:38 09/25/17 12:09 09/24/17 23:38 09/25/17 13:25 09/25/17 12:09 Intake and Output: 09/25/17 09/25/17 06:59 18:59 Intake Total 640 Balance 640 - Medications Medications: Current Medications Amiodarone HCl (Cordarone) 200 mg PO DAILY [facility] Amitriptyline HCl (Elavil) 100 mg PO HS [facility] Apixaban (Eliquis) 5 mg PO BID [facility] Last Admin: 09/25/17 10:19 Dose: 5 mg Aspirin (Aspirin Chewable) 81 mg PO DAILY [facility] Last Admin: 09/25/17 10:20 Dose: 81 mg Famotidine (Pepcid) 20 mg PO BID [facility] Last Admin: 09/25/17 10:20 Dose: 20 mg Furosemide (Lasix) 40 mg PO DAILY [facility] Last Admin: 09/25/17 10:20 Dose: 40 mg Losartan Potassium (Cozaar) 25 mg PO DAILY [facility] Last Admin: 09/25/17 10:20 Dose: 25 mg Memantine (Namenda) 10 mg PO BID [facility] Metoprolol Tartrate (Lopressor) 25 mg PO Q8 [facility] Last Admin: 09/25/17 13:25 Dose: 25 mg Oxybutynin Chloride (Ditropan Xl) 10 mg PO DAILY [facility] Last Admin: 09/25/17 10:19 Dose: 10 mg Rosuvastatin Calcium (Crestor) 10 mg PO HS [facility] - Labs Labs: 09/25/17 06:52 09/25/17 06:52 PT 10.7 SECONDS (9.7-12.2) 09/24/17 01:04 INR 1.0 09/24/17 01:04 APTT 33 SECONDS (21-34) 09/24/17 01:04 Attending/Attestation - Attestation I have personally seen and examined this patient.: Yes I have fully participated in the care of the patient.: Yes I have reviewed all pertinent clinical information, including history, physical exam and plan: Yes Notes (Text): This is a 66 year old female with a past medical history of HTN, Diabetes, Rheumatoid arthritis, Osteoporosis, who came to the ER via ambulance because feeling lightheaded and near synbcope 1. New onset afib with slow ventricular response Normal TSH on Eliquis, losartan,lasix ,asprin and metoprolol stop homeplavix and pletal metformin held d/w Dr Machado.we will add amiodarone 200mg daily 2.DM hold metformin,add lantus 3.Hyperlipidemia increase her statin 4.HTN 5.GI and DVT prophylasix d/w resident.I agree with the documentation of the assessment and the plan 09/25/17 14:48
--- NOTE | 2017-09-25 20:23 | CP.PCM.CON ---
History of Present Illness - History of Present Illness History of Present Illness: Reason for consultation: near syncope; sob on exertion CC: lightheadedness sob on exertion HPI : This is a 66 year old female with a past medical history of HTN, Diabetes, Rheumatoid arthritis, Osteoporosis, who came to the ER via ambulance because of a 48 hour history of feeling lightheaded, short of breath and as if she was going to pass out. This morning these symptoms became worse. She says she felt as if she would fall if she were to get out of bed. She called her PMD , Dr Batista, who was not working today, thus she called 911. She had similar symptoms 2 weeks ago but of a milder degree. She reports palpitations. She says at baseline she's able to walk 4 blocks, at which point she becomes tired and short of breath. She sleeps with 1 pillow at night. She denies fever, chills, nausea, vomiting, chest pain, abdominal pain, diarrhea, dysuria, or other complaints. Upon chart review, patient had a holter monitor done in which showed sinus rhythm and sinus tach with a low of 65 bpm to a max of 112 bpm and isolated APCs but nothing remarkable. EKG on admission revealed Atrial fibrillation MVR. Review of Systems - Cardiovascular Cardiovascular: Dyspnea on Exertion, Irregular Heart Rhythm - Respiratory Respiratory: Dyspnea - Gastrointestinal Gastrointestinal: absent: Abdominal Pain, Nausea - Neurological Neurological: Dizziness Past Patient History - Infectious Disease Hx of Infectious Diseases: None - Past Social History Smoking Status: Light Smoker < 10 Cigarettes Daily - CARDIAC Hx Hypertension: Yes - PULMONARY Hx Asthma: Yes - ENDOCRINE/METABOLIC Hx Diabetes Mellitus Type 2: Yes - MUSCULOSKELETAL/RHEUMATOLOGICAL Hx Rheumatoid Arthritis: Yes - PSYCHIATRIC Hx Substance Use: No - SURGICAL HISTORY Hx Musculoskeletal Surgery: Yes Other/Comment: "L knee and L foot" - ANESTHESIA Hx Anesthesia: Yes Hx Anesthesia Reactions: No Hx Malignant Hyperthermia: No Meds Allergies/Adverse Reactions: Allergies Allergy/AdvReac Type Severity Reaction Status Date / Time No Known Allergies Allergy Unverified 09/24/17 00:29 - Medications Medications: Current Medications Amiodarone HCl (Cordarone) 200 mg PO DAILY [facility] Last Admin: 09/25/17 15:40 Dose: 200 mg Amitriptyline HCl (Elavil) 100 mg PO HS [facility] Apixaban (Eliquis) 5 mg PO BID [facility] Last Admin: 09/25/17 18:15 Dose: 5 mg Aspirin (Aspirin Chewable) 81 mg PO DAILY [facility] Last Admin: 09/25/17 10:20 Dose: 81 mg Famotidine (Pepcid) 20 mg PO BID [facility] Last Admin: 09/25/17 18:14 Dose: 20 mg Furosemide (Lasix) 40 mg PO DAILY [facility] Last Admin: 09/25/17 10:20 Dose: 40 mg Losartan Potassium (Cozaar) 25 mg PO DAILY [facility] Last Admin: 09/25/17 10:20 Dose: 25 mg Memantine (Namenda) 10 mg PO BID [facility] Last Admin: 09/25/17 18:14 Dose: 10 mg Metoprolol Tartrate (Lopressor) 25 mg PO Q8 [facility] Last Admin: 09/25/17 13:25 Dose: 25 mg Oxybutynin Chloride (Ditropan Xl) 10 mg PO DAILY [facility] Last Admin: 09/25/17 10:19 Dose: 10 mg Rosuvastatin Calcium (Crestor) 10 mg PO [facility] Physical Exam - Constitutional Appears: Non-toxic - Head Exam Head Exam: NORMAL INSPECTION - Eye Exam Eye Exam: absent: Scleral icterus - ENT Exam ENT Exam: Mucous Membranes Moist - Neck Exam Neck exam: Positive for: Full Rom - Respiratory Exam Respiratory Exam: Decreased Breath Sounds - Cardiovascular Exam Cardiovascular Exam: REGULAR RHYTHM - GI/Abdominal Exam GI & Abdominal Exam: Soft. absent: Tenderness - Extremities Exam Extremities exam: Negative for: calf tenderness, pedal edema - Neurological Exam Neurological exam: Alert, Oriented x3 Results - Vital Signs Recent Vital Signs: Last Vital Signs Temp 98.4 F 09/25/17 16:04 Pulse 110 H 09/25/17 16:04 Resp 20 09/25/17 16:04 BP 107/72 09/25/17 16:04 Pulse Ox 98 09/25/17 16:04 - Labs Result Diagrams: 09/25/17 06:52 09/25/17 06:52 Labs: Laboratory Results - last 24 hr 09/24/17 09/25/17 09/25/17 21:25 06:27 06:52 WBC 14.1 H D RBC 4.22 Hgb 12.7 Hct 38.2 MCV 90.6 MCH 30.1 MCHC 33.2 RDW 15.3 H Plt Count 328 MPV 8.0 Neut % (Auto) 73.3 Lymph % (Auto) 19.7 L Pierce % (Auto) 4.2 Eos % (Auto) 2.0 Baso % (Auto) 0.8 Neut # 10.3 H Lymph # 2.8 Pierce # 0.6 Eos # 0.3 Baso # 0.1 Sodium Potassium Chloride Carbon Dioxide Anion Gap BUN Creatinine Est GFR ( Amer) Est GFR (Non-Af Amer) POC Glucose (mg/dL) 167 H 202 H Random Glucose Hemoglobin A1c Calcium Phosphorus Magnesium Total Bilirubin AST ALT Alkaline Phosphatase Total Protein Albumin Globulin Albumin/Globulin Ratio Triglycerides Cholesterol LDL Cholesterol Direct HDL Cholesterol TSH 3rd Generation 09/25/17 09/25/17 09/25/17 06:52 06:52 13:13 WBC RBC Hgb Hct MCV MCH MCHC RDW Plt Count MPV Neut % (Auto) Lymph % (Auto) Pierce % (Auto) Eos % (Auto) Baso % (Auto) Neut # Lymph # Pierce # Eos # Baso # Sodium 131 L Potassium 4.1 Chloride 98 Carbon Dioxide 24 Anion Gap 14 BUN 14 Creatinine 0.7 Est GFR ( Amer) > 60 Est GFR (Non-Af Amer) > 60 POC Glucose (mg/dL) 276 H Random Glucose 213 H Hemoglobin A1c 7.9 H Calcium 9.1 Phosphorus 3.5 Magnesium 1.4 L Total Bilirubin 0.7 AST 17 ALT 27 Alkaline Phosphatase 85 Total Protein 7.0 Albumin 4.0 Globulin 3.0 Albumin/Globulin Ratio 1.3 Triglycerides 417 H Cholesterol 224 H LDL Cholesterol Direct 135 H HDL Cholesterol 48 TSH 3rd Generation 2.06 09/25/17 16:09 WBC RBC Hgb Hct MCV MCH MCHC RDW Plt Count MPV Neut % (Auto) Lymph % (Auto) Pierce % (Auto) Eos % (Auto) Baso % (Auto) Neut # Lymph # Pierce # Eos # Baso # Sodium Potassium Chloride Carbon Dioxide Anion Gap BUN Creatinine Est GFR ( Amer) Est GFR (Non-Af Amer) POC Glucose (mg/dL) 214 H Random Glucose Hemoglobin A1c Calcium Phosphorus Magnesium Total Bilirubin AST ALT Alkaline Phosphatase Total Protein Albumin Globulin Albumin/Globulin Ratio Triglycerides Cholesterol LDL Cholesterol Direct HDL Cholesterol TSH 3rd Generation Assessment & Plan - Assessment and Plan (Free Text) Assessment: New Onset Afib CHF T2dm ?CAD HTN Plan: Trops ECHO Agree w/ meds Case discussed w/ Attending physician Juvenal when CHF is compensated Start Eliquis 5mg po BID - Date & Time Date: 09/24/17 Time: 10:20
--- NOTE | 2017-09-25 20:36 | CP.PCM.PN ---
Subjective - Date & Time of Evaluation Date of Evaluation: 09/25/17 Time of Evaluation: 09:00 - Subjective Subjective: still w/ mild sob on exertion ECHO revealed normal EF w/ diastolic dysfunction Objective - Vital Signs/Intake and Output Vital Signs (last 24 hours): Temp Pulse Resp BP Pulse Ox 98.4 F 110 H 20 107/72 98 09/25/17 16:04 09/25/17 16:04 09/25/17 16:04 09/25/17 16:04 09/25/17 16:04 - Medications Medications: Current Medications Amiodarone HCl (Cordarone) 200 mg PO DAILY [facility] Last Admin: 09/25/17 15:40 Dose: 200 mg Amitriptyline HCl (Elavil) 100 mg PO [facility] Apixaban (Eliquis) 5 mg PO BID [facility] Last Admin: 09/25/17 18:15 Dose: 5 mg Aspirin (Aspirin Chewable) 81 mg PO DAILY [facility] Last Admin: 09/25/17 10:20 Dose: 81 mg Famotidine (Pepcid) 20 mg PO BID [facility] Last Admin: 09/25/17 18:14 Dose: 20 mg Furosemide (Lasix) 40 mg PO DAILY [facility] Last Admin: 09/25/17 10:20 Dose: 40 mg Losartan Potassium (Cozaar) 25 mg PO DAILY [facility] Last Admin: 09/25/17 10:20 Dose: 25 mg Memantine (Namenda) 10 mg PO BID [facility] Last Admin: 09/25/17 18:14 Dose: 10 mg Metoprolol Tartrate (Lopressor) 25 mg PO Q8 [facility] Last Admin: 09/25/17 13:25 Dose: 25 mg Oxybutynin Chloride (Ditropan Xl) 10 mg PO DAILY [facility] Last Admin: 09/25/17 10:19 Dose: 10 mg Rosuvastatin Calcium (Crestor) 10 mg PO [facility] - Labs Labs: 09/25/17 06:52 09/25/17 06:52 PT 10.7 SECONDS (9.7-12.2) 09/24/17 01:04 INR 1.0 09/24/17 01:04 APTT 33 SECONDS (21-34) 09/24/17 01:04 - Constitutional Appears: Non-toxic - Head Exam Head Exam: NORMAL INSPECTION - Eye Exam Eye Exam: absent: Scleral icterus - Neck Exam Neck Exam: Full ROM - Respiratory Exam Respiratory Exam: NORMAL BREATHING PATTERN - Cardiovascular Exam Cardiovascular Exam: REGULAR RHYTHM - GI/Abdominal Exam GI & Abdominal Exam: Soft. absent: Tenderness - Extremities Exam Extremities Exam: absent: Calf Tenderness, Pedal Edema - Neurological Exam Neurological Exam: Alert, Oriented x3 Assessment and Plan - Assessment and Plan (Free Text) Assessment: CHF - improving w/ present meds Paroxysmal Afib CAD HTN T2dm Plan: Case discussed w/ Attending Cont diuresis Cont Eliquis Start Amiodarone 200mg po od Lexiscan when CHF is resolved
[2017-09-26 08:22] LABS: BASO # 0.1 K/uL (0.0-0.2); BASO % 1.1 % (0.0-2.0); EOS # 0.5 K/uL (0.0-0.7); EOS % 6.1 % (0.0-4.0); LYMPH # 2.8 K/uL (1.0-4.3); MEAN CELL VOLUME 91.8 fL (81.0-99.0); MEAN CORPUSCULAR HEMOGLOBIN 30.6 pg (27.0-31.0); MEAN CORPUSCULAR HGB CONC 33.3 g/dL (33.0-37.0); MEAN PLATELET VOLUME 8.3 fL (7.2-11.7); MONO # 0.4 K/uL (0.0-0.8); MONO % 5.3 % (0.0-10.0); NRBC % 0.1 % (0.0-2.0); RED CELL DISTRIBUTION WIDTH 15.3 % (11.5-14.5); WHITE BLOOD COUNT 7.6 K/uL (4.8-10.8)
[2017-09-26 08:37] LABS: CHLORIDE 100 mmol/L (98-107); POTASSIUM 3.9 mmol/L (3.6-5.2); SODIUM 133 mmol/L (132-148)
[2017-09-26 08:39] LABS: BILIRUBIN,TOTAL 0.5 mg/dL (0.2-1.3); CARBON DIOXIDE 24 mmol/L (22-30); GFR AFRICAN-AMERICAN > 60
[2017-09-26 08:40] LABS: ALB/GLOB RATIO 1.3 (1.0-2.1); ALKALINE PHOSPHATASE 70 U/L (38-126); ALT/SGPT 24 U/L (9-52); AST/SGOT 20 U/L (14-36); BLOOD UREA NITROGEN 15 mg/dL (7-17); CALCIUM 8.4 mg/dl (8.6-10.4); GLUCOSE,RANDOM 151 mg/dL (65-105); MAGNESIUM 1.9 mg/dL (1.6-2.3); PHOSPHOROUS 2.6 mg/dL (2.5-4.5); TOTAL PROTEIN 6.6 g/dL (6.3-8.3)
[2017-09-26] MEDS: Oxybutynin XL 10 mg Tab PO SCH (11:00)
[2017-09-26] MEDS: Ranolazine 500 mg Extended Release Tablets PO SCH ×2 (12:59→17:37)
--- NOTE | 2017-09-26 13:57 | CP.PCM.PN ---
Addendum entered and electronically signed by Janie Montes De Oca DO 09/26/17 16: 16: Add to diagnosis list: Acute diastolic heart failure Original Note: <Janie Montes De Oca - Last Filed: 09/26/17 13:54> Subjective - Date & Time of Evaluation Date of Evaluation: 09/26/17 Time of Evaluation: 07:50 - Subjective Subjective: Medicine note for Dr. Cardenas Patient seen and examined at bedside. Patient resting comfortably in bed with no new complaints at this time. Patient says her SOB, headache, and chest pain are improving and she is feeling much better than when she arrived at the hospital. Patient says she has not moved her bowels in 2 days. Patient denies fever, chills, abdominal pain, N&V, LE pain, and LE swelling. Objective - Vital Signs/Intake and Output Vital Signs (last 24 hours): Temp Pulse Resp BP Pulse Ox 98.1 F 76 20 106/65 96 09/26/17 00:00 09/26/17 06:50 09/26/17 00:00 09/26/17 11:00 09/26/17 00:00 Intake and Output: 09/26/17 09/26/17 06:59 18:59 Intake Total 740 Balance 740 - Medications Medications: Current Medications Amiodarone HCl (Cordarone) 200 mg PO DAILY [facility] Last Admin: 09/26/17 11:00 Dose: 200 mg Amitriptyline HCl (Elavil) 100 mg PO HS [facility] Last Admin: 09/25/17 21:36 Dose: 100 mg Apixaban (Eliquis) 5 mg PO BID [facility] Last Admin: 09/26/17 11:00 Dose: 5 mg Aspirin (Aspirin Chewable) 81 mg PO DAILY [facility] Last Admin: 09/26/17 09:45 Dose: 81 mg Diltiazem HCl (Cardizem) 30 mg PO TID [facility] Last Admin: 09/26/17 13:06 Dose: 30 mg Famotidine (Pepcid) 20 mg PO BID [facility] Last Admin: 09/26/17 09:45 Dose: 20 mg Furosemide (Lasix) 40 mg PO DAILY [facility] Last Admin: 09/26/17 11:00 Dose: 40 mg Losartan Potassium (Cozaar) 25 mg PO DAILY [facility] Last Admin: 09/26/17 11:02 Dose: 25 mg Memantine (Namenda) 10 mg PO BID [facility] Last Admin: 09/26/17 09:45 Dose: 10 mg Oxybutynin Chloride (Ditropan Xl) 10 mg PO DAILY [facility] Last Admin: 09/26/17 11:00 Dose: 10 mg Ranolazine (Ranexa) 500 mg PO BID [facility] Last Admin: 09/26/17 12:59 Dose: 500 mg Rosuvastatin Calcium (Crestor) 10 mg PO HS [facility] Last Admin: 09/25/17 21:36 Dose: 10 mg - Labs Labs: 09/26/17 07:53 09/26/17 07:53 PT 10.7 SECONDS (9.7-12.2) 09/24/17 01:04 INR 1.0 09/24/17 01:04 APTT 33 SECONDS (21-34) 09/24/17 01:04 - Additional Findings Additional findings: - Constitutional Appears: Non-toxic, No Acute Distress - Head Exam Head Exam: ATRAUMATIC, NORMAL INSPECTION, NORMOCEPHALIC - Eye Exam Eye Exam: EOMI - ENT Exam ENT Exam: Mucous Membranes Moist - Neck Exam Neck Exam: Full ROM, Normal Inspection - Respiratory Exam Respiratory Exam: NORMAL BREATHING PATTERN. absent: Respiratory Distress - Cardiovascular Exam Cardiovascular Exam: Regular rate, +S1, +S2 - GI/Abdominal Exam GI & Abdominal Exam: Soft, Normal Bowel Sounds. absent: Tenderness - Extremities Exam Extremities Exam: Full ROM, Normal Inspection - Back Exam Back Exam: NORMAL INSPECTION - Neurological Exam Neurological Exam: Alert, Awake, Oriented x3 - Psychiatric Exam Psychiatric exam: Normal Affect, Normal Mood - Skin Skin Exam: Dry, Intact, Normal Color, Warm Assessment and Plan - Assessment and Plan (Free Text) Plan: Pre syncope Likely secondary to hyperkalemia resulting in arrythmia Initial EKG showed A-Fib with slow ventricular response, occasional PACs, no acute ischemic changes. Patient administered meds to correct hyperkalemia (see below); shortly after p waves re-appeared on the monitor and patient converted back to NSR. echo shows grade I diastolic pattern, otherwise normal study. F/u carotid dopplers PT/OT Atrial fibrillation Initial EKG showed A-Fib with slow ventricular response, occasional PACs, no acute ischemic changes. Patient administered meds to correct hyperkalemia; shortly after p waves re-appeared on the monitor and patient converted back to NSR. Cardiology consult, Dr Machado On telemetry trops negative echo findings as above ECHO 04/2017: LVSF normal. EF 65%. Abnormal relaxation pattern. Mild pulmonary hypertension. lopressor TID eliquis 5 mg PO BID amiodarone 200 ng PO QD (09/25/17) Diltiazem 30 mg PO TID (09/26/17) Ranexa 500 mg PO BID (09/26/17) Hyperkalemia resolved Elevated d dimer CT angio negative for PE CT scan did show 5 mm lung nodule f/u outpatient Urinary incontinence Oxybutynin XL 10 mg PO QD Dementia Continue Home meds - Namenda 10 mg PO BID GI/DVT ppx heparin 5000 q 8 protonix daily <Juan Cardenas H - Last Filed: 09/26/17 17:46> Objective - Vital Signs/Intake and Output Vital Signs (last 24 hours): Temp Pulse Resp BP Pulse Ox 98.3 F 72 20 102/68 95 09/26/17 15:05 09/26/17 16:00 09/26/17 15:05 09/26/17 15:05 09/26/17 15:05 Intake and Output: 09/26/17 09/26/17 06:59 18:59 Intake Total 740 380 Balance 740 380 - Medications Medications: Current Medications Amiodarone HCl (Cordarone) 200 mg PO DAILY [facility] Last Admin: 09/26/17 11:00 Dose: 200 mg Amitriptyline HCl (Elavil) 100 mg PO HS [facility] Last Admin: 09/25/17 21:36 Dose: 100 mg Apixaban (Eliquis) 5 mg PO BID [facility] Last Admin: 09/26/17 17:36 Dose: 5 mg Aspirin (Aspirin Chewable) 81 mg PO DAILY [facility] Last Admin: 09/26/17 09:45 Dose: 81 mg Diltiazem HCl (Cardizem) 30 mg PO TID [facility] Last Admin: 09/26/17 17:36 Dose: 30 mg Famotidine (Pepcid) 20 mg PO BID [facility] Last Admin: 09/26/17 17:36 Dose: 20 mg Furosemide (Lasix) 40 mg PO DAILY [facility] Last Admin: 09/26/17 11:00 Dose: 40 mg Losartan Potassium (Cozaar) 25 mg PO DAILY [facility] Last Admin: 09/26/17 11:02 Dose: 25 mg Memantine (Namenda) 10 mg PO BID [facility] Last Admin: 09/26/17 17:36 Dose: 10 mg Oxybutynin Chloride (Ditropan Xl) 10 mg PO DAILY [facility] Last Admin: 09/26/17 11:00 Dose: 10 mg Ranolazine (Ranexa) 500 mg PO BID [facility] Last Admin: 09/26/17 17:37 Dose: 500 mg Rosuvastatin Calcium (Crestor) 10 mg PO HS [facility] Last Admin: 09/25/17 21:36 Dose: 10 mg - Labs Labs: 09/26/17 07:53 09/26/17 07:53 PT 10.7 SECONDS (9.7-12.2) 09/24/17 01:04 INR 1.0 09/24/17 01:04 APTT 33 SECONDS (21-34) 09/24/17 01:04 Attending/Attestation - Attestation I have personally seen and examined this patient.: Yes I have fully participated in the care of the patient.: Yes I have reviewed all pertinent clinical information, including history, physical exam and plan: Yes Notes (Text): 09/26/17 17:46 Medical attending: Patient was seen and examined by me, agrees the above note by medical physics professor. When we saw her she was not in any acute distress. Her breathing was more comfortable than previously when she came in. She has been getting IV Lasix since being here. He also had a CTA done to assess for pulmonary embolism and she does not have PE She completed an echo, she's been evaluated by cardiology. The patient has been on rate control medication as well as anticoagulation. At some point she's probably can get a Lexiscan stress test. Thank you very much Juan Cardenas
--- NOTE | 2017-09-26 13:59 | CARD ---
APPROVED REPORT EKG Measurement Heart [id number] <Conclusion> Atrial fibrillation with slow ventricular response with a competing junctional pacemaker Abnormal ECG
--- NOTE | 2017-09-26 14:00 | CARD ---
APPROVED REPORT EKG Measurement Heart [id number] <Conclusion> Undetermined rhythm Cannot rule out Anterior infarct, age undetermined Abnormal ECG
--- NOTE | 2017-09-26 22:58 | CP.PCM.PN ---
Subjective - Date & Time of Evaluation Date of Evaluation: 09/26/17 Time of Evaluation: 07:45 - Subjective Subjective: less SOB no chest pain Objective - Vital Signs/Intake and Output Vital Signs (last 24 hours): Temp Pulse Resp BP Pulse Ox 98.3 F 70 20 102/68 95 09/26/17 15:05 09/26/17 20:36 09/26/17 15:05 09/26/17 15:05 09/26/17 15:05 Intake and Output: 09/26/17 09/27/17 18:59 06:59 Intake Total 380 500 Balance 380 500 - Medications Medications: Current Medications Amiodarone HCl (Cordarone) 200 mg PO DAILY [facility] Last Admin: 09/26/17 11:00 Dose: 200 mg Amitriptyline HCl (Elavil) 100 mg PO HS [facility] Last Admin: 09/26/17 21:07 Dose: 100 mg Apixaban (Eliquis) 5 mg PO BID [facility] Last Admin: 09/26/17 17:36 Dose: 5 mg Aspirin (Aspirin Chewable) 81 mg PO DAILY [facility] Last Admin: 09/26/17 09:45 Dose: 81 mg Diltiazem HCl (Cardizem) 30 mg PO TID [facility] Last Admin: 09/26/17 17:36 Dose: 30 mg Famotidine (Pepcid) 20 mg PO BID [facility] Last Admin: 09/26/17 17:36 Dose: 20 mg Furosemide (Lasix) 40 mg PO DAILY [facility] Last Admin: 09/26/17 11:00 Dose: 40 mg Losartan Potassium (Cozaar) 25 mg PO DAILY [facility] Last Admin: 09/26/17 11:02 Dose: 25 mg Memantine (Namenda) 10 mg PO BID [facility] Last Admin: 09/26/17 17:36 Dose: 10 mg Oxybutynin Chloride (Ditropan Xl) 10 mg PO DAILY [facility] Last Admin: 09/26/17 11:00 Dose: 10 mg Ranolazine (Ranexa) 500 mg PO BID [facility] Last Admin: 09/26/17 17:37 Dose: 500 mg Rosuvastatin Calcium (Crestor) 10 mg PO HS [facility] Last Admin: 09/26/17 21:07 Dose: 10 mg - Labs Labs: 09/26/17 07:53 09/26/17 07:53 PT 10.7 SECONDS (9.7-12.2) 09/24/17 01:04 INR 1.0 09/24/17 01:04 APTT 33 SECONDS (21-34) 09/24/17 01:04 - Constitutional Appears: Non-toxic - Head Exam Head Exam: NORMAL INSPECTION - Eye Exam Eye Exam: absent: Scleral icterus - ENT Exam ENT Exam: Mucous Membranes Moist - Neck Exam Neck Exam: Full ROM - Respiratory Exam Respiratory Exam: NORMAL BREATHING PATTERN - Cardiovascular Exam Cardiovascular Exam: REGULAR RHYTHM - GI/Abdominal Exam GI & Abdominal Exam: Soft. absent: Tenderness - Exam External exam: NORMAL EXTERNAL EXAM - Extremities Exam Extremities Exam: absent: Calf Tenderness, Pedal Edema Assessment and Plan - Assessment and Plan (Free Text) Assessment: CHF r/o CAD Plan: Lexiscan in the morning Cont the meds
[2017-09-27] MEDS ORDERED: Aminophylline 25 mg/ml Inj ONE (07:16)
[2017-09-27 08:26] LABS: BASO # 0.1 K/uL (0.0-0.2); BASO % 0.7 % (0.0-2.0); EOS # 0.5 K/uL (0.0-0.7); EOS % 6.2 % (0.0-4.0); HEMATOCRIT 36.3 % (34.0-47.0); LYMPH # 2.4 K/uL (1.0-4.3); LYMPH % 27.8 % (20.0-40.0); MEAN CORPUSCULAR HEMOGLOBIN 30.1 pg (27.0-31.0); MEAN CORPUSCULAR HGB CONC 33.1 g/dL (33.0-37.0); MEAN PLATELET VOLUME 8.4 fL (7.2-11.7); MONO # 0.6 K/uL (0.0-0.8); MONO % 6.4 % (0.0-10.0); RED CELL DISTRIBUTION WIDTH 15.1 % (11.5-14.5); WHITE BLOOD COUNT 8.6 K/uL (4.8-10.8)
[2017-09-27 08:58] LABS: CHLORIDE 100 mmol/L (98-107)
[2017-09-27 08:59] LABS: POTASSIUM 4.1 mmol/L (3.6-5.2); SODIUM 132 mmol/L (132-148)
[2017-09-27 09:01] LABS: ALB/GLOB RATIO 1.4 (1.0-2.1); AST/SGOT 18 U/L (14-36); BILIRUBIN,TOTAL 0.6 mg/dL (0.2-1.3); BLOOD UREA NITROGEN 17 mg/dL (7-17); CARBON DIOXIDE 23 mmol/L (22-30); GFR AFRICAN-AMERICAN > 60; TOTAL PROTEIN 6.7 g/dL (6.3-8.3)
[2017-09-27 09:02] LABS: ALKALINE PHOSPHATASE 66 U/L (38-126); ALT/SGPT 28 U/L (9-52); CALCIUM 8.5 mg/dl (8.6-10.4); GLUCOSE,RANDOM 165 mg/dL (65-105); MAGNESIUM 1.7 mg/dL (1.6-2.3); PHOSPHOROUS 2.9 mg/dL (2.5-4.5)
[2017-09-27] MEDS: Ranolazine 500 mg Extended Release Tablets PO SCH ×2 (10:00→17:03)
[2017-09-27] MEDS: Oxybutynin XL 10 mg Tab PO SCH (12:15)
[2017-09-27] MEDS: (Novolin R) Insulin Human Regular 100 units/ml vial SC SCH ×2 (17:04→21:47)
--- NOTE | 2017-09-27 17:04 | CARD ---
APPROVED REPORT Protocol: LEXISCAN Test Type: LEXISCAN STRESS Test Indications: CP Target HR: 155 bpm Resting ECG: normal Resting Heart Rate: 82 bpm Resting Blood Pressure: 118/80mmHg submaximum (85%): 132 bpm TEST SUMMARY [id number]:01..1.081/.0. PREINFSNHYPERV.06:[id number]/80.0. INFUSIONDOSE 100:300.00.01.080/.0. [id number]:[id number]/80.0. PROCEDURE Pharmacologic stress testing was performed using 0.4mg per 5ml of regadenoson given intravenously over 7-10 seconds. Reversal agent aminophyline 125 mg, given intravenously for Headache. POST EXERCISE Reason for Termination: Protocol Completed Target HR: No Max HR: 80 bpm 60% of Maximum Predicted HR: 155 bpm Exercise duration: 00:30 min:sec, 0 Stage Exercise capacity: 1.0METs Max Blood Pressure: 132/80mmHg Blood Pressure response to exercise: normal resting BP - appropriate response Heart Rate response to exercise: appropriate Chest Pain: No, none Angina index: 0 Arrhythmia: No, none ST Change: No, none Deviation: 0 mm INTERPRETATION Stress EKG Conclusion: NEGATIVE LEXISCAN STRESS TEST NORMAL BP RESPONSE TO LEXISCAN NUCLEAR STUDIES TO BE READ SEPARATELY EXAM: Myocardial Perfusion STRESS/REST Imaging Protocol The imaging protocol used to acquire images was Stress Tc-99m/rest Tc-99m 1 day Stress Spect myocardial perfusion imaging was performed in supine position 40 minutes following the injection of 13.1 mCi of Tc-99 Myoview. Gated Rest Spect was performed 41 minutes after intravenous 32.6 mCi Tc-99 Myoview injection. The images were gated to evaluate regional wall motion and calculate ventricular ejection fraction.Images were reconstructed using backfilter projection method in short horizontal and verticle long axis. Spect slices were generated. RESTING DATA EDV33.03wrZM5.30L/min ESV7.00mlMyocardial Mass82.00g Av. Heart Rate88.00bpm EF79.00% STRESS DATA EDV31.13gaFU2.40L/min ESV5.00mlMyocardial Mass75.00g EF84.00% Regional WT score at stress:2.00 Regional WM score at stress:0.00 Summed WT score at stress:29.00 Av. Heart Rate96.00bpmSummed WM score at stress:1.00 LV Perf. Quant 17 Seg. SSS0.00 17 Seg. SRS0.00 17 Seg. SDS0.00 Stress Defect Extent (% LAD)0.00Rest Defect Extent (% LAD)0.00Rev. Defect Extent (% LAD)0.00 Stress Defect Extent (% LCX)0.00Rest Defect Extent (% LCX)0.00Rev. Defect Extent (% LCX)0.00 Stress Defect Extent (% RCA)0.00Rest Defect Extent (% RCA)0.00Rev. Defect Extent (% RCA)0.00 Stress Defect Extent (% DENNY)0.00Rest Defect Extent (% DENNY)0.00Rev. Defect Extent (% DENNY)0.00 IMPRESSION Normal Myocardial Perfusion exercise stress study Left Ventricle LV Size/Shape: The left ventricle is normal size. LV Function:Left ventricle systolic function is normal. The Ejection Fraction is >70%. Metabolism/Perfusion Defects: There is no scan evidence of reversible ischemia noted. Conclusion 1. There is no scan evidence of reversible ischemia noted. 2. Left ventricle systolic function is normal. 3. The Ejection Fraction is >70%.
--- NOTE | 2017-09-27 17:06 | CP.PCM.PN ---
<Janie Montes De Oca - Last Filed: 09/27/17 16:43> Subjective - Date & Time of Evaluation Date of Evaluation: 09/27/17 Time of Evaluation: 14:00 - Subjective Subjective: Medicine note for Dr. Cardenas Patient was seen and examined at bedside. Patient was resting comfortably following her Lexiscan earlier in the day. Patient feels a little bad, and complains of bilateral hand pain as well as an intermittent headache that worsens with coughing. She also complains of feeling cold, and has abdominal pain due to not having a bowel movement in four days. She states that her SOB, chest pain and headache have been improving since admission. She denies fever, nausea, vomiting, diarrhea, chest pain, palpitations, SOB, dizziness and leg pain. Objective - Vital Signs/Intake and Output Vital Signs (last 24 hours): Temp Pulse Resp BP Pulse Ox 97.7 F 101 H 20 101/65 96 09/27/17 15:42 09/27/17 16:16 09/27/17 15:42 09/27/17 15:42 09/27/17 15:42 Intake and Output: 09/27/17 09/27/17 06:59 18:59 Intake Total 620 480 Balance 620 480 - Medications Medications: Current Medications Amiodarone HCl (Cordarone) 200 mg PO DAILY [facility] Last Admin: 09/27/17 12:15 Dose: 200 mg Amitriptyline HCl (Elavil) 100 mg PO HS [facility] Last Admin: 09/26/17 21:07 Dose: 100 mg Apixaban (Eliquis) 5 mg PO BID [facility] Last Admin: 09/27/17 12:25 Dose: 5 mg Aspirin (Aspirin Chewable) 81 mg PO DAILY [facility] Last Admin: 09/27/17 12:15 Dose: 81 mg Diltiazem HCl (Cardizem) 30 mg PO TID [facility] Last Admin: 09/27/17 13:59 Dose: 30 mg Docusate Sodium (Colace) 100 mg PO BID [facility] Famotidine (Pepcid) 20 mg PO BID [facility] Last Admin: 09/27/17 10:00 Dose: Not Given Furosemide (Lasix) 40 mg PO DAILY [facility] Last Admin: 09/27/17 12:14 Dose: 40 mg Insulin Human Regular (Novolin R) 0 unit SC ACHS [facility] PRN Reason: Protocol Losartan Potassium (Cozaar) 25 mg PO DAILY [facility] Last Admin: 09/27/17 12:15 Dose: 25 mg Memantine (Namenda) 10 mg PO BID [facility] Last Admin: 09/27/17 10:00 Dose: Not Given Oxybutynin Chloride (Ditropan Xl) 10 mg PO DAILY [facility] Last Admin: 09/27/17 12:15 Dose: 10 mg Ranolazine (Ranexa) 500 mg PO BID [facility] Last Admin: 09/27/17 10:00 Dose: Not Given Rosuvastatin Calcium (Crestor) 10 mg PO HS [facility] Last Admin: 09/26/17 21:07 Dose: 10 mg - Labs Labs: 09/27/17 08:13 09/27/17 08:13 PT 10.7 SECONDS (9.7-12.2) 09/24/17 01:04 INR 1.0 09/24/17 01:04 APTT 33 SECONDS (21-34) 09/24/17 01:04 - Constitutional Appears: Well, No Acute Distress - Head Exam Head Exam: ATRAUMATIC, NORMAL INSPECTION, NORMOCEPHALIC - Eye Exam Eye Exam: Normal appearance - ENT Exam ENT Exam: Mucous Membranes Moist - Respiratory Exam Respiratory Exam: Clear to Ausculation Bilateral, NORMAL BREATHING PATTERN - Cardiovascular Exam Cardiovascular Exam: REGULAR RHYTHM - GI/Abdominal Exam GI & Abdominal Exam: Soft, Tenderness. absent: Distended - Extremities Exam Extremities Exam: Calf Tenderness, Normal Inspection - Neurological Exam Neurological Exam: Alert, Awake, Oriented x3 - Psychiatric Exam Psychiatric exam: Normal Affect, Normal Mood - Skin Skin Exam: Normal Color, Warm Assessment and Plan - Assessment and Plan (Free Text) Plan: Disposition: Patient will be discharged to TCU on 09/28/2017 pending Lexiscan results Pre syncope Likely secondary to hyperkalemia resulting in arrythmia Initial EKG showed A-Fib with slow ventricular response, occasional PACs, no acute ischemic changes. Patient administered meds to correct hyperkalemia (see below); shortly after p waves re-appeared on the monitor and patient converted back to NSR. echo shows grade I diastolic pattern, otherwise normal study. F/u carotid dopplers PT/OT Atrial fibrillation Initial EKG showed A-Fib with slow ventricular response, occasional PACs, no acute ischemic changes. Patient administered meds to correct hyperkalemia; shortly after p waves re-appeared on the monitor and patient converted back to NSR. Cardiology consult, Dr Machado On telemetry trops negative echo findings as above ECHO 04/2017: LVSF normal. EF 65%. Abnormal relaxation pattern. Mild pulmonary hypertension. lopressor TID eliquis 5 mg PO BID amiodarone 200 ng PO QD (09/25/17) Diltiazem 30 mg PO TID (09/26/17) Ranexa 500 mg PO BID (09/26/17) Acute Diastolic Heart Failure echo shows grade I diastolic pattern, otherwise normal study f/u Lexiscan Hyperkalemia resolved Elevated d dimer CT angio negative for PE CT scan did show 5 mm lung nodule f/u outpatient Urinary incontinence Oxybutynin XL 10 mg PO QD Constipation colace 100 mg BID Dementia Continue Home meds - Namenda 10 mg PO BID Hx Diabetes ISS GI/DVT ppx heparin 5000 q 8 protonix daily <Juan Cardenas H - Last Filed: 09/27/17 19:17> Objective - Vital Signs/Intake and Output Vital Signs (last 24 hours): Temp Pulse Resp BP Pulse Ox 97.7 F 101 H 20 101/65 96 09/27/17 15:42 09/27/17 18:04 09/27/17 15:42 09/27/17 15:42 09/27/17 15:42 Intake and Output: 09/27/17 09/28/17 18:59 06:59 Intake Total 480 Balance 480 - Medications Medications: Current Medications Amiodarone HCl (Cordarone) 200 mg PO DAILY [facility] Last Admin: 09/27/17 12:15 Dose: 200 mg Amitriptyline HCl (Elavil) 100 mg PO HS [facility] Last Admin: 09/26/17 21:07 Dose: 100 mg Apixaban (Eliquis) 5 mg PO BID [facility] Last Admin: 09/27/17 17:04 Dose: 5 mg Aspirin (Aspirin Chewable) 81 mg PO DAILY [facility] Last Admin: 09/27/17 12:15 Dose: 81 mg Diltiazem HCl (Cardizem) 30 mg PO TID [facility] Last Admin: 09/27/17 17:03 Dose: 30 mg Docusate Sodium (Colace) 100 mg PO BID [facility] Last Admin: 09/27/17 17:03 Dose: 100 mg Famotidine (Pepcid) 20 mg PO BID [facility] Last Admin: 09/27/17 17:04 Dose: 20 mg Furosemide (Lasix) 40 mg PO DAILY [facility] Last Admin: 09/27/17 12:14 Dose: 40 mg Insulin Human Regular (Novolin R) 0 unit SC ACHS [facility] PRN Reason: Protocol Last Admin: 09/27/17 17:04 Dose: 1 unit Losartan Potassium (Cozaar) 25 mg PO DAILY [facility] Last Admin: 09/27/17 12:15 Dose: 25 mg Memantine (Namenda) 10 mg PO BID [facility] Last Admin: 09/27/17 17:03 Dose: 10 mg Oxybutynin Chloride (Ditropan Xl) 10 mg PO DAILY [facility] Last Admin: 09/27/17 12:15 Dose: 10 mg Ranolazine (Ranexa) 500 mg PO BID [facility] Last Admin: 09/27/17 17:03 Dose: 500 mg Rosuvastatin Calcium (Crestor) 10 mg PO HS [facility] Last Admin: 09/26/17 21:07 Dose: 10 mg - Labs Labs: 09/27/17 08:13 09/27/17 08:13 PT 10.7 SECONDS (9.7-12.2) 09/24/17 01:04 INR 1.0 09/24/17 01:04 APTT 33 SECONDS (21-34) 09/24/17 01:04 Attending/Attestation - Attestation I have personally seen and examined this patient.: Yes I have fully participated in the care of the patient.: Yes I have reviewed all pertinent clinical information, including history, physical exam and plan: Yes Notes (Text): 09/27/17 Medical Attending: Agree with the above note by the resident The patient was seen and examined by me. The patient in the morning underwent Lexiscan, the results of which are not yet available. If these are ok then maybe we can DC to rehab tommorow but we will see thank you Juan Cardenas
[2017-09-28 09:11] LABS: BASO # 0.1 K/uL (0.0-0.2); BASO % 0.8 % (0.0-2.0); EOS # 0.3 K/uL (0.0-0.7); EOS % 4.5 % (0.0-4.0); HEMATOCRIT 37.2 % (34.0-47.0); LYMPH % 27.8 % (20.0-40.0); MEAN CELL VOLUME 91.3 fL (81.0-99.0); MEAN CORPUSCULAR HEMOGLOBIN 30.6 pg (27.0-31.0); MEAN CORPUSCULAR HGB CONC 33.6 g/dL (33.0-37.0); MEAN PLATELET VOLUME 8.3 fL (7.2-11.7); MONO # 0.6 K/uL (0.0-0.8); MONO % 8.9 % (0.0-10.0); RED CELL DISTRIBUTION WIDTH 15.1 % (11.5-14.5); WHITE BLOOD COUNT 7.2 K/uL (4.8-10.8)
[2017-09-28 09:34] LABS: ALKALINE PHOSPHATASE 65 U/L (38-126); ALT/SGPT 30 U/L (9-52); AST/SGOT 13 U/L (14-36); BILIRUBIN,TOTAL 0.4 mg/dL (0.2-1.3); BLOOD UREA NITROGEN 15 mg/dL (7-17); CARBON DIOXIDE 25 mmol/L (22-30); CHLORIDE 99 mmol/L (98-107); GFR AFRICAN-AMERICAN > 60; GLUCOSE,RANDOM 181 mg/dL (65-105); MAGNESIUM 1.7 mg/dL (1.6-2.3); POTASSIUM 3.8 mmol/L (3.6-5.2); SODIUM 132 mmol/L (132-148); TOTAL PROTEIN 7.8 g/dL (6.3-8.3)
[2017-09-28] MEDS: Ranolazine 500 mg Extended Release Tablets PO SCH (11:19)
[2017-09-28] MEDS: (Novolin R) Insulin Human Regular 100 units/ml vial SC SCH ×2 (11:23→11:30)
[2017-09-28] MEDS: Oxybutynin XL 10 mg Tab PO SCH (11:24)
[2017-09-28] MEDS ORDERED: Pneumococcal 23-Valent Vaccine IM ONE (15:41)
[2017-09-28 15:47] VITALS: BP 100/64; PULSE 102; TEMP 97.7; O2SAT 97
--- NOTE | 2017-09-29 07:55 | CP.PCM.DIS ---
Provider - Provider Date of Admission: 09/24/17 01:54 Attending physician: Juan Cardenas DO Primary care physician: Blu Batista MD Consults: Dr. Machado Time Spent in preparation of Discharge (in minutes): 35 Diagnosis - Discharge Diagnosis (1) Atrial fibrillation Status: Acute (2) Elevated d-dimer Status: Acute (3) Hyperkalemia Status: Acute (4) Pre-syncope Status: Acute (5) Prophylactic measure Status: Acute Hospital Course - Lab Results Lab Results: Most Recent Lab Values WBC 7.2 K/uL (4.8-10.8) 09/28/17 08:58 RBC 4.08 Mil/uL (3.80-5.20) 09/28/17 08:58 Hgb 12.5 g/dL (11.0-16.0) 09/28/17 08:58 Hct 37.2 % (34.0-47.0) 09/28/17 08:58 MCV 91.3 fL (81.0-99.0) 09/28/17 08:58 MCH 30.6 pg (27.0-31.0) 09/28/17 08:58 MCHC 33.6 g/dL (33.0-37.0) 09/28/17 08:58 RDW 15.1 % (11.5-14.5) H 09/28/17 08:58 Plt Count 333 K/uL (130-400) 09/28/17 08:58 MPV 8.3 fL (7.2-11.7) 09/28/17 08:58 Neut % (Auto) 58.0 % (50.0-75.0) 09/28/17 08:58 Lymph % (Auto) 27.8 % (20.0-40.0) 09/28/17 08:58 [place] % (Auto) 8.9 % (0.0-10.0) 09/28/17 08:58 Eos % (Auto) 4.5 % (0.0-4.0) H 09/28/17 08:58 Baso % (Auto) 0.8 % (0.0-2.0) 09/28/17 08:58 Neut # 4.2 K/uL (1.8-7.0) 09/28/17 08:58 Lymph # 2.0 K/uL (1.0-4.3) 09/28/17 08:58 [place] # 0.6 K/uL (0.0-0.8) 09/28/17 08:58 Eos # 0.3 K/uL (0.0-0.7) 09/28/17 08:58 Baso # 0.1 K/uL (0.0-0.2) 09/28/17 08:58 PT 10.7 SECONDS (9.7-12.2) 09/24/17 01:04 INR 1.0 09/24/17 01:04 APTT 33 SECONDS (21-34) 09/24/17 01:04 D-Dimer, Quantitative 315 ng/mlDDU (0-243) H 09/24/17 01:04 Sodium 132 mmol/L (132-148) 09/28/17 08:58 Potassium 3.8 mmol/L (3.6-5.2) 09/28/17 08:58 Chloride 99 mmol/L (98-107) 09/28/17 08:58 Carbon Dioxide 25 mmol/L (22-30) 09/28/17 08:58 Anion Gap 11 (10-20) 09/28/17 08:58 BUN 15 mg/dL (7-17) 09/28/17 08:58 Creatinine 0.7 mg/dL (0.7-1.2) 09/28/17 08:58 Est GFR ( Amer) > 60 09/28/17 08:58 Est GFR (Non-Af Amer) > 60 09/28/17 08:58 POC Glucose (mg/dL) 251 mg/dL (65-110) H 09/28/17 11:00 Random Glucose 181 mg/dL (65-105) H 09/28/17 08:58 Hemoglobin A1c 7.9 % (4.2-6.5) H 09/25/17 06:52 Calcium 9.0 mg/dl (8.6-10.4) 09/28/17 08:58 Phosphorus 3.0 mg/dL (2.5-4.5) 09/28/17 08:58 Magnesium 1.7 mg/dL (1.6-2.3) 09/28/17 08:58 Total Bilirubin 0.4 mg/dL (0.2-1.3) 09/28/17 08:58 AST 13 U/L (14-36) L D 09/28/17 08:58 ALT 30 U/L (9-52) 09/28/17 08:58 Alkaline Phosphatase 65 U/L (38-126) 09/28/17 08:58 Total Creatine Kinase 23 U/L (30-135) L 09/24/17 13:40 CK-MB (Mass) < 0.22 ng/mL (0.0-3.38) 09/24/17 13:40 Troponin I 0.0210 ng/mL (0.00-0.120) 09/24/17 01:04 Troponin I, Quant < 0.0120 ng/mL (0.00-0.120) 09/24/17 13:40 NT-Pro-B Natriuret Pep 1950 pg/mL (0-900) H 09/24/17 01:04 Total Protein 7.8 g/dL (6.3-8.3) 09/28/17 08:58 Albumin 3.8 g/dL (3.5-5.0) 09/28/17 08:58 Globulin 4.0 gm/dL (2.2-3.9) H 09/28/17 08:58 Albumin/Globulin Ratio 1.0 (1.0-2.1) 09/28/17 08:58 Triglycerides 417 mg/dL (0-149) H 09/25/17 06:52 Cholesterol 224 mg/dL (0-199) H 09/25/17 06:52 LDL Cholesterol Direct 135 mg/dL (0-129) H 09/25/17 06:52 HDL Cholesterol 48 mg/dL (30-70) 09/25/17 06:52 TSH 3rd Generation 2.06 mIU/L (0.46-4.68) 09/25/17 06:52 - Hospital Course Hospital Course: Upon admission: This is a 66 year old female with a past medical history of HTN, Diabetes, Rheumatoid arthritis, Osteoporosis, who came to the ER via ambulance because of a 48 hour history of feeling lightheaded, short of breath and as if she was going to pass out. This morning these symptoms became worse. She says she felt as if she would fall if she were to get out of bed. She called her PMD , Dr Batista, who was not working today, thus she called 911. She had similar symptoms 2 weeks ago but of a milder degree. She reports palpitations. She says at baseline she's able to walk 4 blocks, at which point she becomes tired and short of breath. She sleeps with 1 pillow at night. She denies fever, chills, nausea, vomiting, chest pain, abdominal pain, diarrhea, dysuria, or other complaints. Upon chart review, patient had a holter monitor done in which showed sinus rhythm and sinus tach with a low of 65 bpm to a max of 112 bpm and isolated APCs but nothing remarkable. Hospital course: Patient with history of HTN, diabetes was admitted (09/24/17) for a pre- syncopal episode. Patient reported feeling lightheaded and short of breath, with worsening symptoms. On admission, patient complained of palpitations in addition to the lightheadedness and shortness of breath, but denied fever, chills, chest pain, nausea, vomiting, diarrhea, constipation and dysuria. Due to pre-syncopal episode, EKG was ordered to monitor the heart. Initial EKG ( 09/24/17) showed atrial fibrillation with slow ventricular response. Labs showed hyperkalemia, and patient was given sodium bicarbonate, calcium chloride , insulin and d50. Shortly after, patient converted to normal sinus rhythm. Patient was thought to have atrial fibrillation secondary to hyperkalemia. Cardiology (Dr. Machado) was consulted and recommended ordering troponins, an echo , a Lexiscan and starting the patient on Eliquis. The echo (09/24/17) report said ejection fraction was >50%. Echo report also mentioned there was a Grade I abnormal relaxation pattern. Chest X-ray was ordered (09/24/17) for the shortness of breath, and the report showed no active pulmonary disease. Chest CT was also ordered (09/24/17) and showed no acute PE, no cardiomegaly, and a 5 mm nodule in the right lung. Head CT was ordered (09/24/17) to rule out ischemic changes and no acute intracranial abnormalities were found. Lastly, Lexiscan (09/26/17) found no evidence of reversible ischemia. The patient's heart was monitored for atrial fibrillation on telemetry throughout her hospital stay. When seen today (09/28/17), the patient was resting comfortably, but appeared more tired than when she arrived. Patient refused to be transferred to TCU, wishing to go home instead. Medication, at-home physical therapy and a rolling walker were ordered for the patient upon discharge. Upon discharge: Patient stable for discharge with home physical therapy per Dr. Cardenas. Patient will need to follow up with her Primary care provider as well as the cook box filler. Patient was instructed to discontinue plavix and take the provided prescriptions. Please note this is a summary of events. For more details please see complete medical records. Discharge Exam - Head Exam Head Exam: ATRAUMATIC, NORMAL INSPECTION, NORMOCEPHALIC - Eye Exam Eye Exam: EOMI, Normal appearance - ENT Exam ENT Exam: Mucous Membranes Moist - Respiratory Exam Respiratory Exam: Clear to PA & Lateral, NORMAL BREATHING PATTERN, UNREMARKABLE - Cardiovascular Exam Cardiovascular Exam: +S1, +S2 - GI/Abdominal Exam GI & Abdominal Exam: Normal Bowel Sounds, Unremarkable - Extremities Exam Extremities exam: normal inspection - Neurological Exam Neurological exam: Alert, Normal Gait, Oriented x3 - Psychiatric Exam Psychiatric exam: Normal Affect, Normal Mood - Skin Skin Exam: Dry, Intact, Normal Color, Warm Discharge Plan - Discharge Medications Prescriptions: Amiodarone [Cordarone] 200 mg PO DAILY #30 tab Apixaban [Eliquis] 5 mg PO BID #60 tab diltiaZEM [Cardizem] 30 mg PO TID #90 tab Furosemide [Lasix] 20 mg PO DAILY #30 tab Losartan Potassium 25 mg PO DAILY #30 tablet Metoprolol Succinate [Toprol XL] 25 mg PO DAILY #30 tab Simvastatin 20 mg PO HS #30 tablet - Follow Up Plan Condition: GOOD Disposition: DISCHARGED TO HOME CARE Instructions: Metoprolol (By mouth), Diltiazem (By mouth), Furosemide (By mouth ), Amiodarone (By mouth), Simvastatin (By mouth), Losartan (By mouth), Apixaban (By mouth), Heart Failure (DC), Atrial Fibrillation (DC), Hyperkalemia (DC), Hyperkalemia (GEN) Additional Instructions: Please follow up with your PCP, Dr. Batista within one week of discharge from the hospital for continued medical care. You will need to follow up in 12 months for a repeat CT of the chest because of a small 5mm lung nodule found on the chest CT during your stay, considering your smoking history. Please take the prescriptions provided and have them filled at your pharmacy. Please discontinue the plavix. Referrals: Ciaran Machado MD [Staff Provider] - Blu Batista MD [Primary Care Provider] - Juan Cardenas DO [Staff Provider] -
== END 2017-09-28 16:00 | disposition home health service (06) | DRG 308 ==
LOC: C.ER 00:23 → SUPCPDRO 00:23 → C.5S 01:54
PROVIDERS: ADMIT Family Medicine; ATTEND Hospitalist
DX: I48.0 Paroxysmal atrial fibrillation (principal); I50.31 Acute diastolic (congestive) heart failure; E87.5 Hyperkalemia; I27.20 Pulmonary hypertension, unspecified; I11.0 Hypertensive heart disease with heart failure; F17.210 Nicotine dependence, cigarettes, uncomplicated; E78.5 Hyperlipidemia, unspecified; E11.9 Type 2 diabetes mellitus without complications; I25.10 Atherosclerotic heart disease of native coronary artery without angina pectoris; J45.909 Unspecified asthma, uncomplicated; M06.9 Rheumatoid arthritis, unspecified; M81.0 Age-related osteoporosis without current pathological fracture; R79.1 Abnormal coagulation profile; Z79.01 Long term (current) use of anticoagulants; Z79.84 Long term (current) use of oral hypoglycemic drugs